=== PATIENT | male | born 1990 | race Caucasian/White ===

== ENCOUNTER 2019-09-19 10:09 | Emergency (ER) | payer SELFPAY ==
[~2019-09-19] VITALS: Ht 175.3 cm; Wt 72.6 kg
[2019-09-19 10:31] VITALS: BP 119/69
--- NOTE | 2019-09-19 10:41 | NUR ---
PT AMB TO BED 10.
--- NOTE | 2019-09-19 10:53 | NUR ---
28 Y/O M C/C LACERATION ON NOSE WHILE PLAYING SOCCER. NO LOC. NO BLEEDING NOTED. PT NKA. NO HX. NO RX. NO N/V/D. SIDE RAIL X1.
--- NOTE | 2019-09-19 11:18 | NUR ---
Patient taken to XRAY via wheelchair by tech.
[2019-09-19] MEDS ORDERED: LIDOCAINE MPF 1% 10 MG/ML VIAL INJ ONE (11:20)
[2019-09-19] MEDS ORDERED: BACITRACIN OINT 500 UNITS/GM PKT TP ONE (11:20)
[2019-09-19 11:57] VITALS: BP 119/69
== END 2019-09-19 11:57 | disposition home or self-care (01) ==
LOC: MED 10:09
DX: S01.21XA Laceration without foreign body of nose, initial encounter (principal); X58.XXXA Exposure to other specified factors, initial encounter; Y93.89 Activity, other specified; Y92.89 Other specified places as the place of occurrence of the external cause; Y99.8 Other external cause status
CPT/HCPCS: 12011; 90471; 90715; 99283; J2001

== ENCOUNTER 2019-09-27 11:06 | Emergency (ER) | payer SELFPAY ==
[~2019-09-27] VITALS: Ht 175.3 cm; Wt 72.6 kg
[2019-09-27 11:09] VITALS: BP 125/62
--- NOTE | 2019-09-27 11:14 | NUR ---
WAIT AT LOBBY
--- NOTE | 2019-09-27 12:00 | NUR ---
PT AMBULATED TO BED WITH STEADY GAIT
--- NOTE | 2019-09-27 12:10 | NUR ---
28 Y/O MALE C/O SUTURE REMOVAL FROM NASAL AREA. PT AMBULATED TO BED WITH STEADY GAIT. VSS. BED IN LOW POSITION, WHEELS LOCKED, 1 SIDERAIL UP. MEDICAL HX: DENIES NKA
--- NOTE | 2019-09-27 13:07 | NUR ---
Patient transferred to chair B. RN evaluating patient.
--- NOTE | 2019-09-27 13:33 | NUR ---
The patient was evaluated, treated and discharged by [facility] Capone. No nursing care was rendered. The patient was discharged by [facility] Capone.
== END 2019-09-27 13:33 | disposition home or self-care (01) ==
LOC: MED 11:06
DX: Z48.00 Encounter for change or removal of nonsurgical wound dressing (principal)
CPT/HCPCS: 99283

== ENCOUNTER 2023-05-01 08:45 | Emergency (ER) | payer MEDICAID ==
[~2023-05-01] VITALS: Ht 175.3 cm; Wt 77.1 kg
[2023-05-01 09:02] VITALS: BP 134/81; PULSE 68; RESP 14; TEMP 98.9; O2SAT 98
[2023-05-01 10:06] VITALS: O2SAT 98
[2023-05-01 10:07] VITALS: BP 134/81; PULSE 68; RESP 14; TEMP 98.9; O2SAT 98
== END 2023-05-01 09:47 | disposition home or self-care (01) ==
LOC: MED 08:45
DX: S01.112A Laceration without foreign body of left eyelid and periocular area, initial encounter (principal); Y04.2XXA Assault by strike against or bumped into by another person, initial encounter; Y93.89 Activity, other specified; Y92.89 Other specified places as the place of occurrence of the external cause; Y99.8 Other external cause status
CPT/HCPCS: 99281